=== PATIENT | male | born 1940 | race Two or more races ===

== ENCOUNTER 2022-09-23 10:28 | Outpatient (CLI) | payer MEDICARE, OTHER | END 2022-09-23 23:59 | disposition home or self-care (01) | LOC: MSC 10:28 | PROVIDERS: ATTEND Anesthesiology | DX: M51.26 Other intervertebral disc displacement, lumbar region (principal); M47.27 Other spondylosis with radiculopathy, lumbosacral region; G89.29 Other chronic pain; M79.2 Neuralgia and neuritis, unspecified ==

== ENCOUNTER 2022-09-26 10:55 | Outpatient (CLI) | payer MEDICARE, OTHER | END 2022-09-26 23:59 | disposition home or self-care (01) | LOC: LAB 10:55 | PROVIDERS: ATTEND Anesthesiology | DX: Z01.812 Encounter for preprocedural laboratory examination (principal); Z20.822 Contact with and (suspected) exposure to COVID-19 | CPT/HCPCS: U0003; C9803 ==

== ENCOUNTER 2022-10-03 07:21 | Day surgery (SDC) | payer MEDICARE, OTHER ==
[2022-10-03] MEDS ORDERED: BUPIVACAINE 0.25% 75 MG/30 ML VIAL ONE (08:11)
[2022-10-03] MEDS ORDERED: LIDOCAINE HCL/MPF 1% 30 ML VIAL IJ ONE (08:11)
[2022-10-03] MEDS ORDERED: IOHEXOL 50 ML IV ONE (08:11)
[2022-10-03] MEDS ORDERED: DEXAMETHASONE SOD PHOSPHATE 10 MG/ML VIAL ONE (08:12)
[2022-10-03] MEDS ORDERED: BETA ACET/BET NA PHOS MDV 6 MG/ML VIAL ONE (08:12)
== END 2022-10-03 09:05 | disposition home or self-care (01) ==
LOC: DS 07:21
PROVIDERS: ATTEND Anesthesiology
DX: M47.27 Other spondylosis with radiculopathy, lumbosacral region (principal); M54.50 Low back pain, unspecified
CPT/HCPCS: 64483; 72020; 64484; J1100; J3490 ×2; Q9967; A6209; J0702

== ENCOUNTER 2022-10-28 10:40 | Outpatient (CLI) | payer MEDICARE, OTHER | END 2022-10-28 23:59 | disposition home or self-care (01) | LOC: MSC 10:40 | PROVIDERS: ATTEND Anesthesiology | DX: M47.27 Other spondylosis with radiculopathy, lumbosacral region (principal); M51.26 Other intervertebral disc displacement, lumbar region; G89.4 Chronic pain syndrome; M79.2 Neuralgia and neuritis, unspecified; Z79.1 Long term (current) use of non-steroidal anti-inflammatories (NSAID) ==

== ENCOUNTER 2022-11-13 13:15 | Outpatient (CLI) | payer MEDICARE, OTHER | END 2022-11-13 23:59 | disposition home or self-care (01) | LOC: LAB 13:15 | PROVIDERS: ATTEND Anesthesiology | DX: Z01.812 Encounter for preprocedural laboratory examination (principal); Z20.822 Contact with and (suspected) exposure to COVID-19 | CPT/HCPCS: U0003; C9803 ==

== ENCOUNTER 2022-11-20 07:50 | Day surgery (SDC) | payer MEDICARE, OTHER ==
[2022-11-20] MEDS ORDERED: IOHEXOL 50 ML IV ONE (08:56)
[2022-11-20] MEDS ORDERED: BUPIVACAINE 0.25% 75 MG/30 ML VIAL ONE (08:56)
[2022-11-20] MEDS ORDERED: LIDOCAINE HCL/MPF 1% 30 ML VIAL IJ ONE (08:56)
[2022-11-20] MEDS ORDERED: DEXAMETHASONE SOD PHOSPHATE 10 MG/ML VIAL ONE ×2 (08:57)
== END 2022-11-20 11:18 | disposition home or self-care (01) ==
LOC: DS 07:50
PROVIDERS: ATTEND Anesthesiology
DX: M47.26 Other spondylosis with radiculopathy, lumbar region (principal); M51.16 Intervertebral disc disorders with radiculopathy, lumbar region; G89.4 Chronic pain syndrome
CPT/HCPCS: 62323; 72020; J1100 ×2; J2704; J3490 ×3; J7030; Q9967